=== PATIENT | male | born 1965 | race Caucasian/White ===

== ENCOUNTER 2017-01-30 15:18 | Emergency (ER) | payer OTHER ==
[2017-01-30] MEDS ORDERED: NORMAL SALINE 1000 ML 1,000 ML IV PRN (15:56)
--- NOTE | 2017-01-30 15:57 | ER Document Report ---
ED Medical Screen (RME) - General Chief Complaint: Abdominal Pain Stated Complaint: ABOMINAL PAIN Time Seen by Provider: 01/30/17 15:51 TRAVEL OUTSIDE OF THE [place] IN LAST 30 DAYS: No - HPI Notes: 01/30/17 15:57 Right flank pain for 1 week right upper quadrant shoulder pain beginning in the last 24 hours of nausea vomiting patient is a diabetic seen in urgent care with urinalysis showing spilling of bilirubin and glucose and ketones patient had no blood in the urine sample Past Medical History Renal/ Medical History: Denies: Hx Peritoneal Dialysis Review of Systems - Review of Systems Constitutional: Other - Flank pain Physical Exam - Vital signs Vitals: Temp Pulse Resp BP Pulse Ox 98.7 F 78 16 136/88 H 97 01/30/17 15:29 01/30/17 15:29 01/30/17 15:29 01/30/17 15:29 01/30/17 15:29 - Respiratory Respiratory status: No respiratory distress Chest status: Nontender Breath sounds: Normal Chest palpation: Normal Course - Vital Signs Vital signs: Temp Pulse Resp BP Pulse Ox 98.7 F 78 16 136/88 H 97 01/30/17 15:29 01/30/17 15:29 01/30/17 15:29 01/30/17 15:29 01/30/17 15:29
[2017-01-30 16:36] LABS: PROTHROMBIN TIME 11.8 SEC (11.4-15.4)
[2017-01-30 16:37] LABS: PARTIAL THROMBOPLASTIN TIME 25.1 SEC (23.5-35.8)
[2017-01-30 16:41] LABS: ABSOLUTE BASOPHILS # (AUTO) 0.1 10^3/uL (0.0-0.2); ABSOLUTE EOSINOPHILS # (AUTO) 0.3 10^3/uL (0.0-0.6); ABSOLUTE LYMPHOCYTES (AUTO) 2.5 10^3/uL (0.5-4.7); ABSOLUTE MONOCYTES (AUTO) 0.4 10^3/uL (0.1-1.4); ABSOLUTE NEUT (AUTO) 4.4 10^3/uL (1.7-8.2); BASOPHILS % (AUTO) 0.8 % (0-2); EOSINOPHILS % (AUTO) 3.5 % (0-6); HEMATOCRIT 50.7 % (37.9-51.0); HEMOGLOBIN 18.4 g/dL (13.5-17.0); LYMPHOCYTES % (AUTO) 32.5 % (13-45); MEAN CORPUSCULAR HEMOGLOBIN 32.3 pg (27.0-33.4); MEAN CORPUSCULAR HGB CONC 36.2 g/dL (32.0-36.0); MEAN CORPUSCULAR VOLUME 89 fl (80-97); MONOCYTES % (AUTO) 5.6 % (3-13); RED BLOOD COUNT 5.69 10^6/uL (4.35-5.55); RED CELL DISTRIBUTION WIDTH 13.1 % (11.5-14.0); SEGMENTED NEUTROPHILS % (AUTO) 57.6 % (42-78); WHITE BLOOD COUNT 7.6 10^3/uL (4.0-10.5)
[2017-01-30 16:51] LABS: ALANINE AMINOTRANSFERASE 54 U/L (21-72); ALBUMIN 4.6 g/dL (3.5-5.0); ALKALINE PHOSPHATASE 126 U/L (38-126); ANION GAP 12 (5-19); ASPARTATE AMINO TRANSFERASE 27 U/L (17-59); BILIRUBIN,DIRECT 0.5 mg/dL (0.0-0.4); BLOOD UREA NITROGEN 14 mg/dL (7-20); CALCIUM 10.6 mg/dL (8.4-10.2); CARBON DIOXIDE 25 mmol/L (22-30); CHLORIDE 99 mmol/L (98-107); CREATININE RESULT 0.64 mg/dL (0.52-1.25); GLUCOSE 291 mg/dL (75-110); LIPASE 24.9 U/L (23-300); POTASSIUM 4.5 mmol/L (3.6-5.0); SODIUM 135.8 mmol/L (137-145); TOTAL PROTEIN 8.2 g/dL (6.3-8.2)
[2017-01-30 16:53] LABS: HGB HCT DIFFERENCE 4.5
--- NOTE | 2017-01-30 17:41 | ER Document Report ---
ED Neck/Back Problem - General Mode of Arrival: Ambulatory Information source: Patient TRAVEL OUTSIDE OF THE [place] IN LAST 30 DAYS: No - HPI Patient complains to provider of: Lower back Recently seen / treated by doctor: Yes <ADRIÁN DURHAM - Last Filed: 01/30/17 18:17> <KALIE OCHOA - Last Filed: 01/30/17 23:59> - General Chief Complaint: Abdominal Pain Stated Complaint: ABOMINAL PAIN Time Seen by Provider: 01/30/17 15:51 Notes: Patient is a 51-year-old male who presents to the emergency department today with complaints of lower back pain of a one-week duration. Patient was seen at an urgent care prior to arrival here and was found to have bilirubin, blood, ketones, and sugar in his urine so he was sent here. Patient states his diabetes has been uncontrolled for approximately 1 year because he has moved here and has not had a doctor since moving. Patient states he used to be on Victoza and Farxiga. Patient mentions lower abdominal pain as well. Patient denies any pain with urination, weakness, fevers, nausea, or vomiting. (ADRIÁN DURHAM) - Related Data Allergies/Adverse Reactions: No Known Allergies Allergy (Verified 01/30/17 18:35) Past Medical History - General Information source: Patient - Social History Smoking Status: Never Smoker Cigarette use (# per day): No Chew tobacco use (# tins/day): No Frequency of alcohol use: Rare Drug Abuse: Marijuana Lives with: Family Family History: Reviewed & Not Pertinent - Past Medical History Cardiac Medical History: Reports: Hx Hypercholesterolemia, Hx Hypertension Endocrine Medical History: Reports: Hx Diabetes Mellitus Type 2 Psychiatric Medical History: Reports: Hx Depression Surgical Hx: Negative - Immunizations Hx Diphtheria, Pertussis, Tetanus Vaccination: Yes - 2014 <ADRIÁN DURHAM - Last Filed: 01/30/17 18:17> Review of Systems - Review of Systems Constitutional: See HPI, Other - abnormal urine test at urgent care. denies: Fever EENT: No symptoms reported Cardiovascular: No symptoms reported Respiratory: No symptoms reported Gastrointestinal: See HPI, Abdominal pain - diffuse lower abdominal pain. denies: Nausea, Vomiting Genitourinary: denies: Dysuria Male Genitourinary: No symptoms reported Musculoskeletal: See HPI, Back pain Skin: No symptoms reported Hematologic/Lymphatic: No symptoms reported Neurological/Psychological: No symptoms reported -: Yes All other systems reviewed and negative <ADRIÁN DURHAM - Last Filed: 01/30/17 18:17> Physical Exam <ADRIÁN DURHAM - Last Filed: 01/30/17 18:17> <KALIE OCHOA - Last Filed: 01/30/17 23:59> - Vital signs Vitals: Temp Pulse Resp BP Pulse Ox 98.7 F 78 16 136/88 H 97 01/30/17 15:29 01/30/17 15:29 01/30/17 15:29 01/30/17 15:29 01/30/17 15:29 - Notes Notes: PHYSICAL EXAM GENERAL: Alert, interacts well. No acute distress. HEAD: Normocephalic, atraumatic. EYES: Pupils equal, round, and reactive to light. Extraocular movements intact. ENT: Oral mucosa moist, tongue midline. NECK: Full range of motion. Supple. Trachea midline. LUNGS: Clear to auscultation bilaterally, no wheezes, rales, or rhonchi. No respiratory distress. HEART: Regular rate and rhythm. No murmurs, gallops, or rubs. ABDOMEN: Right upper quadrant abdominal tenderness with palpation, right lower quadrant abdominal tenderness with palpation, mild left lower quadrant tenderness with palpation. Non-distended. Bowel sounds present in all 4 quadrants. EXTREMITIES: Moves all 4 extremities spontaneously. No edema, radial and dorsalis pedis pulses 2/4 bilaterally. No cyanosis. BACK: Right paraspinal tenderness with palpation over thoracolumbar junction with muscle spasm, no midline tenderness. NEUROLOGICAL: Alert and oriented x3. Normal speech. PSYCH: Normal affect, normal mood. SKIN: Warm, dry, normal turgor. No rashes or lesions noted. (ADRIÁN DURHAM) Course - Laboratory Result Diagrams: 01/30/17 16:15 01/30/17 16:15 <ADRIÁN DURHAM - Last Filed: 01/30/17 18:17> - Laboratory Result Diagrams: 01/30/17 16:15 01/30/17 16:15 <KALIE OCHOA - Last Filed: 01/30/17 23:59> - Re-evaluation Re-evalutation: 01/30/17 23:58 CBC shows hemoconcentration with hemoglobin 18.4, coags normal, CMP shows elevated glucose at 291 consistent with a diabetic has not been on any medications for several months, LFTs normal, direct bilirubin minimally elevated at 0.5 instead of 0.4. Lipase normal. Discussed with family that the patient does not have a surgical abdomen at this time and I suspect pain in his back is coming from a muscle sprain causing muscle spasm. Family is very uncomfortable with this diagnosis, they are concerned by the reports of blood and ketones in his urine. I did review the report from urgent care, he has trace ketones, minimal blood, 100 of protein and very small bilirubin. They are very concerned that the patient may have renal failure and obstruction of his right kidney which is causing this pain in his back. I discussed with the family that I find this relatively unlikely given his normal BUN and creatinine however admitted that it could be possible to have normal renal function with only one functioning kidney. Renal ultrasound was undertaken as was abdominal ultrasound, this showed fatty infiltration of the liver, no biliary pathology, normal kidneys and normal renal blood flow. Robaxin did not decrease his pain. At present I still feel given the reproducible tenderness on palpation in the palpable muscle spasm at the thoracolumbar junction on physical examination on the right which is exactly where his pain is located that this most likely represents a muscular etiology of his pain. No evidence of infection, no erythema. Patient will be started on Flexeril and discharged home, patient will follow up with his primary care physician for first appointment on Tuesday. Per patient's request I did start the patient on Victoza and Farxiga which are the diabetic medications he was taking previously. (KALIE OCHOA) - Vital Signs Vital signs: Temp Pulse Resp BP Pulse Ox 98.5 F 76 17 123/74 95 01/30/17 20:30 01/30/17 20:30 01/30/17 20:30 01/30/17 20:30 01/30/17 20:30 - Laboratory Laboratory results interpreted by il: 01/30/17 01/30/17 16:15 16:15 RBC 5.69 H Hgb 18.4 H MCHC 36.2 H Sodium 135.8 L Glucose 291 H Calcium 10.6 H Direct Bilirubin 0.5 H Discharge <ADRIÁN DURHAM - Last Filed: 01/30/17 18:17> <KALIE OCHOA - Last Filed: 01/30/17 23:59> - Discharge Clinical Impression: Acute right flank pain, Prehypertension Hyperglycemia due to type 2 diabetes mellitus Qualifiers: Diabetes mellitus mcc insulin use: without mcc use Qualified Code(s ): E11.65 - Type 2 diabetes mellitus with hyperglycemia Condition: Stable Disposition: HOME, SELF-CARE Instructions: Flank Pain ([facility]) Prescriptions: Cyclobenzaprine HCl [Flexeril 10 mg Tablet] 10 mg PO TIDP PRN #15 tab PRN Reason: Dapagliflozin Propanediol [Farxiga] 5 mg PO DAILY #30 tablet Liraglutide [Victoza 2-[place]] 0.6 mg SQ DAILY #1 pkg Forms: Elevated Blood Pressure Referrals: LD GOODMAN MD [NO LOCAL MD] - Follow up as needed Scribe Attestation: 01/30/17 23:59 I personally performed the services described in the documentation, reviewed and edited the documentation which was dictated to the scribe in my presence, and it accurately records my words and actions. (KALIE OCHOA) Scribe Documentation - Scribe Written by Scribe:: Venkatesh Johnson, 01/30/2017 1828 acting as scribe for :: Yoselin <ADRIÁN DURHAM - Last Filed: 01/30/17 18:17>
[2017-01-30] MEDS ORDERED: METHOCARBAMOL INJ/PF 1000 MG/10 ML SDV IV ONE (17:55)
--- NOTE | 2017-01-30 18:51 | RADIOLOGY REPORT (SQ) ---
EXAM DESCRIPTION: U/S ABDOMEN LTD W/DOPPLER COMPLETED DATE/TIME: 01/30/2017 6:34 pm REASON FOR STUDY: ruq right flank COMPARISON: None. TECHNIQUE: Dynamic and static grayscale images acquired of the abdomen and recorded on PACS. Additio nal selected color Doppler and spectral images recorded. LIMITATIONS: Midline bowel gas FINDINGS: PANCREAS: Not well seen LIVER: Echogenic from diffuse hepatocellular disease or fatty infiltration. No focal masses. LIVER VASCULATURE: Normal directional flow of the main portal vein and hepatic veins. GALLBLADDER: No stones. Normal wall thickness. No pericholecystic fluid. ULTRASOUND-DETECTED SPENCER'S SIGN: Negative. INTRAHEPATIC DUCTS AND COMMON DUCT: CBD and intrahepatic ducts normal caliber. No filling defects. INFERIOR VENA CAVA: Not well seen AORTA: No aneurysm. RIGHT KIDNEY: Normal size. Normal echogenicity. No solid or suspicious masses. No hydronephrosis. No calcifications. PERITONEAL AND RIGHT PLEURAL SPACE: No ascites or effusions. OTHER: No other significant findings. IMPRESSION: Fatty liver No gallstones Pancreas not well seen TECHNICAL DOCUMENTATION: JOB ID: [id number]- All Rights Reserved
--- NOTE | 2017-01-30 19:02 | RADIOLOGY REPORT (SQ) ---
EXAM DESCRIPTION: U/S RETROPERITON (RENAL/AORTA) COMPLETED DATE/TIME: 01/30/2017 6:37 pm REASON FOR STUDY: right flank pain, r/o obstruction COMPARISON: None. TECHNIQUE: Dynamic and static grayscale images acquired of the kidneys and bladder and recorded on P ACS. Additional selected color Doppler and spectral images recorded. LIMITATIONS: None. FINDINGS: RIGHT KIDNEY: Normal size 12.1 cm in length. Normal echogenicity. No solid or suspicious m asses. No hydronephrosis. No calcifications. LEFT KIDNEY: Normal size, 12.7 seconds in length. Normal echogenicity. No solid or suspicious masses . No hydronephrosis. No calcifications. BLADDER: No masses. Bilateral ureteral jets are identified. OTHER FINDINGS: No other significant finding. IMPRESSION: NORMAL RENAL AND BLADDER ULTRASOUND. TECHNICAL DOCUMENTATION: JOB ID: [id number] [employer]- All Rights Reserved
[2017-01-30 21:57] VITALS: BP 123/74
== END 2017-01-30 20:30 | disposition home or self-care (01) ==
LOC: ER 15:18
DX: E11.65 Type 2 diabetes mellitus with hyperglycemia (principal); R10.9 Unspecified abdominal pain; R03.0 Elevated blood-pressure reading, without diagnosis of hypertension; M54.5 Low back pain; Z79.899 Other long term (current) drug therapy
CPT/HCPCS: 99284; 96361; 96374; 36415; 83690; 85025; 85610; 85730; 80053; 76770; 76705; 93976; J2800; J7030

== ENCOUNTER 2017-08-02 15:48 | Emergency (ER) | payer SELFPAY ==
[2017-08-02] MEDS ORDERED: ONDANSETRON HCL INJ/PF 4 MG/2 ML SDV IV ONE (16:25)
[2017-08-02] MEDS ORDERED: MORPHINE SULFATE 10 MG/ML INJ IV ONE (16:26)
[2017-08-02] MEDS ORDERED: NORMAL SALINE 1000 ML 1,000 ML IV ONE ×2 (16:26→18:27)
[2017-08-02 16:38] LABS: ABSOLUTE BASOPHILS # (AUTO) 0.1 10^3/uL (0.0-0.2); ABSOLUTE EOSINOPHILS # (AUTO) 0.3 10^3/uL (0.0-0.6); TOTAL CELLS COUNTED % (AUTO) 100 %
[2017-08-02 16:51] LABS: ABSOLUTE MONOCYTES (AUTO) 0.4 10^3/uL (0.1-1.4); ABSOLUTE NEUT (AUTO) 3.6 10^3/uL (1.7-8.2); BASOPHILS % (AUTO) 1.1 % (0-2); EOSINOPHILS % (AUTO) 5.3 % (0-6); HEMATOCRIT 46.3 % (37.9-51.0); HEMOGLOBIN 16.5 g/dL (13.5-17.0); LYMPHOCYTES % (AUTO) 30.7 % (13-45); MEAN CORPUSCULAR HGB CONC 35.7 g/dL (32.0-36.0); MEAN CORPUSCULAR VOLUME 90 fl (80-97); MONOCYTES % (AUTO) 6.2 % (3-13); PLATELET COUNT 214 10^3/uL (150-450); RED BLOOD COUNT 5.17 10^6/uL (4.35-5.55); RED CELL DISTRIBUTION WIDTH 13.2 % (11.5-14.0); SEGMENTED NEUTROPHILS % (AUTO) 56.7 % (42-78); WHITE BLOOD COUNT 6.4 10^3/uL (4.0-10.5)
--- NOTE | 2017-08-02 17:08 | ER Document Report ---
ED General - General Chief Complaint: High Blood Sugar Stated Complaint: BLOOD SUGARD CONCERNS Time Seen by Provider: 08/02/17 16:08 Information source: Patient Notes: 52-year-old male who presents today stating that his blood sugar at home has been very elevated. Patient states that he is on insulin, Victoza, and "Fosega ". Patient states he lost his job and no longer has insurance. Patient states he has been out of all his medications for 2 weeks. Patient states he is normally followed by the primary care physician Dr. Rodarte, but is unable to keep his appointment secondary to his insurance issues. Patient denies any nausea, vomiting, diaphoresis, chest pain, leg swelling. He states he took his blood sugar at home it was greater than 600. He states he was told to come immediately to the emergency department by his friend who works for EMS. Patient states he has some chronic lower back pain for the last few months. He states that he was told he has "back spasms". Denies any weakness or numbness of his legs. He denies any incontinence. He denies any recent trauma or fevers. TRAVEL OUTSIDE OF THE [place] IN LAST 30 DAYS: No - HPI Onset: Other - See above Onset/Duration: Gradual Quality of pain: Achy Severity: Moderate Pain Level: 2 Associated symptoms: Other - See above Exacerbated by: Movement Relieved by: Denies Recently seen / treated by doctor: Yes - Related Data Allergies/Adverse Reactions: No Known Allergies Allergy (Verified 08/02/17 15:50) Past Medical History - General Information source: Patient - Social History Smoking Status: Current Every Day Smoker Cigarette use (# per day): No Chew tobacco use (# tins/day): No Smoking Education Provided: No Frequency of alcohol use: None Drug Abuse: None Family History: Reviewed & Not Pertinent Patient has suicidal ideation: No Patient has homicidal ideation: No - Past Medical History Cardiac Medical History: Reports: Hx Hypercholesterolemia, Hx Hypertension Endocrine Medical History: Reports: Hx Diabetes Mellitus Type 2 Renal/ Medical History: Denies: Hx Peritoneal Dialysis Psychiatric Medical History: Reports: Hx Depression - Immunizations Hx Diphtheria, Pertussis, Tetanus Vaccination: Yes - 2014 Review of Systems - Review of Systems Constitutional: denies: Fever EENT: denies: Eye discharge, Nose discharge Cardiovascular: denies: Chest pain, Palpitations, Dizziness Respiratory: denies: Short of breath Gastrointestinal: denies: Vomiting Musculoskeletal: denies: Leg swelling Skin: Other - no hives. denies: Rash Neurological/Psychological: Other - no slurred speech -: Yes All other systems reviewed and negative Physical Exam - Vital signs Vitals: Temp Pulse Resp BP Pulse Ox 98.0 F 101 H 18 130/82 H 98 08/02/17 15:51 08/02/17 15:51 08/02/17 15:51 08/02/17 15:51 08/02/17 15:51 Interpretation: Normal Notes: Reviewed vital signs and nursing note as charted by RN. CONSTITUTIONAL: Alert and oriented and responds appropriately to questions. Well -appearing; well-nourished HEAD: Normocephalic; atraumatic EYES: PERRL; no nystagmus noted ENT: Normal nose; no rhinorrhea; moist mucous membranes; pharynx without lesions noted NECK: Supple without meningismus; non-tender CARD: Regular rate and rhythm; no murmurs RESP: Normal chest excursion without splinting or tachypnea; breath sounds clear and equal bilaterally ABD/GI: Normal bowel sounds; non-distended; soft, non-tender BACK: The back appears normal; tenderness to bilateral paraspinal muscular regions with no midline tenderness, swelling, erythema, or step-offs EXT: Normal ROM in all joints; non-tender to palpation; no edema SKIN: No acute lesions noted NEURO: Moves all extremities equally; 2+ patellar reflexes bilaterally; 5 out of 5 bilateral lower extremity plantar and flexor extension PSYCH: The patient's mood and manner are appropriate. Grooming and personal hygiene are appropriate. Course - Re-evaluation Re-evalutation: 08/02/17 17:09 Given the above history and physical examination we will order basic labs, obtain a venous blood gas, provide a liter of fluid, and reassess. Patient currently has no signs or symptoms of acute cord compression, discitis, or epidural abscess. 08/02/17 18:10 Labs as recorded. Second liter fluid has been given. I was able to call the primary care physician Dr. Rodarte. He was very generous stating that he would be able to see the patient tomorrow morning and possibly give him some medication samples. Patient does have an appointment in the extended month with the [facility]. The primary doctor even recommended possibly providing a dose of one-time Lantus prior to discharge before being seen tomorrow. States he has had a recent MRI of the lumbar spine showing no acute cord compression. Patient has no incontinence and is able to walk. I will provide a one-time dose of Lantus, another liter of fluid, and discharge with follow-up with both his primary doctor and the [facility]. - Vital Signs Vital signs: Temp Pulse Resp BP Pulse Ox 98.0 F 101 H 18 130/82 H 98 08/02/17 15:51 08/02/17 15:51 08/02/17 15:51 08/02/17 15:51 08/02/17 15:51 - Laboratory Result Diagrams: 08/02/17 16:23 08/02/17 17:20 Laboratory results interpreted by me: 08/02/17 08/02/17 16:03 17:20 Sodium 135.2 L Glucose 331 H POC Glucose 398 H Alkaline Phosphatase 129 H Discharge - Discharge Clinical Impression: Blood glucose elevated, Noncompliance with medication regimen Low back pain Qualifiers: Chronicity: acute Back pain laterality: bilateral Sciatica presence: with sciatica Sciatica laterality: sciatica of right side Qualified Code(s): M54.41 - Lumbago with sciatica, right side Condition: Good Disposition: HOME, SELF-CARE Additional Instructions: Please make sure that you follow-up with Dr. Rodarte tomorrow morning and/or the [facility] as scheduled. Come back immediately with any weakness or numbness of your legs, incontinence of urine or stool, change in mental status, fevers, increased pain, or any other acute problems.
[2017-08-02 17:59] LABS: ALANINE AMINOTRANSFERASE 38 U/L (21-72); ALKALINE PHOSPHATASE 129 U/L (38-126); ANION GAP 13 (5-19); ASPARTATE AMINO TRANSFERASE 23 U/L (17-59); BILIRUBIN,DIRECT 0.4 mg/dL (0.0-0.4); BILIRUBIN,TOTAL 0.5 mg/dL (0.2-1.3); BLOOD UREA NITROGEN 16 mg/dL (7-20); CALCIUM 9.3 mg/dL (8.4-10.2); CARBON DIOXIDE 22 mmol/L (22-30); CHLORIDE 100 mmol/L (98-107); GLUCOSE 331 mg/dL (75-110); POTASSIUM 4.6 mmol/L (3.6-5.0); SODIUM 135.2 mmol/L (137-145); TOTAL PROTEIN 7.1 g/dL (6.3-8.2)
[2017-08-02] MEDS ORDERED: INSULIN GLARGINE,HUM.REC.ANLOG 1,000 UNIT/10 ML UNIT SUBCUT ONE (18:26)
[2017-08-02 19:11] VITALS: BP 128/82
== END 2017-08-02 19:17 | disposition home or self-care (01) ==
LOC: ER 15:48
DX: E11.65 Type 2 diabetes mellitus with hyperglycemia (principal); T38.3X6A Underdosing of insulin and oral hypoglycemic [antidiabetic] drugs, initial encounter; Z91.120 Patient's intentional underdosing of medication regimen due to financial hardship; Z91.14 Patient's other noncompliance with medication regimen; M54.41 Lumbago with sciatica, right side; F17.200 Nicotine dependence, unspecified, uncomplicated; I10 Essential (primary) hypertension
CPT/HCPCS: 99285; 96361; 96374; 96375; 36415; 82962; 85025; 80053; J1815; J2270; J2405; J7030

== ENCOUNTER → 2017-11-09 | Outpatient (CLI) | payer OTHER ==
[2017-11-09 12:30] LABS: ABSOLUTE EOSINOPHILS # (AUTO) 0.1 10^3/uL (0.0-0.6); ABSOLUTE MONOCYTES (AUTO) 0.3 10^3/uL (0.1-1.4); ABSOLUTE NEUT (AUTO) 3.7 10^3/uL (1.7-8.2); BASOPHILS % (AUTO) 0.7 % (0-2); EOSINOPHILS % (AUTO) 2.3 % (0-6); HEMATOCRIT 46.8 % (37.9-51.0); HEMOGLOBIN 16.5 g/dL (13.5-17.0); LYMPHOCYTES % (AUTO) 32.1 % (13-45); MEAN CORPUSCULAR HEMOGLOBIN 31.1 pg (27.0-33.4); MEAN CORPUSCULAR HGB CONC 35.3 g/dL (32.0-36.0); MEAN CORPUSCULAR VOLUME 88 fl (80-97); MONOCYTES % (AUTO) 5.6 % (3-13); PLATELET COUNT 209 10^3/uL (150-450); RED BLOOD COUNT 5.31 10^6/uL (4.35-5.55); RED CELL DISTRIBUTION WIDTH 13.4 % (11.5-14.0); SEGMENTED NEUTROPHILS % (AUTO) 59.3 % (42-78); TOTAL CELLS COUNTED % (AUTO) 100 %; WHITE BLOOD COUNT 6.2 10^3/uL (4.0-10.5)
[2017-11-09 13:37] LABS: ALANINE AMINOTRANSFERASE 37 U/L (21-72); ALBUMIN 4.5 g/dL (3.5-5.0); ALKALINE PHOSPHATASE 141 U/L (38-126); ANION GAP 11 (5-19); ASPARTATE AMINO TRANSFERASE 23 U/L (17-59); BILIRUBIN,DIRECT 0.5 mg/dL (0.0-0.4); BILIRUBIN,TOTAL 0.9 mg/dL (0.2-1.3); BLOOD UREA NITROGEN 14 mg/dL (7-20); CALCIUM 9.9 mg/dL (8.4-10.2); CARBON DIOXIDE 29 mmol/L (22-30); CHLORIDE 99 mmol/L (98-107); CHOLESTEROL 197.89 mg/dL (0-200); GLUCOSE 382 mg/dL (75-110); POTASSIUM 5.8 mmol/L (3.6-5.0); SODIUM 139.4 mmol/L (137-145); TOTAL PROTEIN 7.8 g/dL (6.3-8.2)
[2017-11-09 13:46] LABS: TRIGLYCERIDES 797 mg/dL (<150)
[2017-11-09 13:48] LABS: DIRECT LDL 51 mg/dL (<100)
== END ==
LOC: CCC 11:41
DX: E11.8 Type 2 diabetes mellitus with unspecified complications (principal); D75.1 Secondary polycythemia
CPT/HCPCS: 36415; 80053; 80061; 83036; 84443; 85025

== ENCOUNTER → 2017-12-28 | Outpatient (CLI) | payer OTHER ==
--- NOTE | 2017-12-28 12:39 | RADIOLOGY REPORT (SQ) ---
EXAM DESCRIPTION: SHOULDER LEFT 2 OR MORE VIEWS COMPLETED DATE/TIME: 12/28/2017 12:31 pm REASON FOR STUDY: PAIN IN LEFT SHOULDER M25.512 PAIN IN LEFT SHOULDER M54.5 LOW BACK PAIN M54.2 C ERVICALGIA COMPARISON: None. NUMBER OF VIEWS: Three views. TECHNIQUE: Internal rotation, external rotation, and Y view images acquired of the left shoulder. LIMITATIONS: None. FINDINGS: MINERALIZATION: Normal. BONES: No acute fracture or dislocation. No worrisome bone lesions. JOINTS: No dislocation. VISUALIZED LUNGS AND RIBS: No pneumothorax. No rib fracture. SOFT TISSUES: No radiopaque foreign body. OTHER: No other significant finding. IMPRESSION: NEGATIVE STUDY OF THE LEFT SHOULDER. NO RADIOGRAPHIC EVIDENCE OF ACUTE INJURY. TECHNICAL DOCUMENTATION: JOB ID: [id number] [employer]- All Rights Reserved Reading location - IP/workstation name: [email or web address]
--- NOTE | 2017-12-28 12:41 | RADIOLOGY REPORT (SQ) ---
EXAM DESCRIPTION: C SP 6 OR MORE VIEWS; T SPINE AP/LAT COMPLETED DATE/TIME: 12/28/2017 12:31 pm REASON FOR STUDY: CERVICALGIA; LOW BACK PAIN COMPARISON: None. FINDINGS: 6 views cervical spine including upright flexion extension lateral: No malalignment or ab normal motion. Mild multilevel disc space narrowing with small osteophytes. No bulky spurs. Patent neural foramina. No fracture or bone lesion. Soft tissues unremarkable. Clear lung apices. Two view thoracic spine: Normal alignment. Multilevel disc space narrowing with small osteophytes. Normal soft tissues with no mediastinal mass or lung pathology demonstrated. IMPRESSION: 1. Cervical and thoracic spondylosis. No fracture or malalignment. 2. No abnormal cer vical spine motion on flexion-extension imaging. TECHNICAL DOCUMENTATION: JOB ID: [id number] Reading location - IP/workstation name: [email or web address]
--- NOTE | 2017-12-28 12:41 | RADIOLOGY REPORT (SQ) ---
EXAM DESCRIPTION: C SP 6 OR MORE VIEWS; T SPINE AP/LAT COMPLETED DATE/TIME: 12/28/2017 12:31 pm REASON FOR STUDY: CERVICALGIA; LOW BACK PAIN COMPARISON: None. FINDINGS: 6 views cervical spine including upright flexion extension lateral: No malalignment or ab normal motion. Mild multilevel disc space narrowing with small osteophytes. No bulky spurs. Patent neural foramina. No fracture or bone lesion. Soft tissues unremarkable. Clear lung apices. Two view thoracic spine: Normal alignment. Multilevel disc space narrowing with small osteophytes. Normal soft tissues with no mediastinal mass or lung pathology demonstrated. IMPRESSION: 1. Cervical and thoracic spondylosis. No fracture or malalignment. 2. No abnormal cer vical spine motion on flexion-extension imaging. TECHNICAL DOCUMENTATION: JOB ID: [id number] Reading location - IP/workstation name: [email or web address]
== END ==
LOC: CCC 11:19
DX: M25.512 Pain in left shoulder (principal)
CPT/HCPCS: 72052; 72070

== ENCOUNTER 2017-12-30 13:00 | Emergency (ER) | payer SELFPAY ==
--- NOTE | 2017-12-30 13:33 | ER Document Report ---
ED Cardiac - General Chief Complaint: Chest Pain Stated Complaint: SHORTNESS OF BREATH Time Seen by Provider: 12/30/17 13:33 Mode of Arrival: Ambulatory Information source: Patient TRAVEL OUTSIDE OF THE [place] IN LAST 30 DAYS: No - HPI Patient complains to provider of: Other - 50-year-old man presents for evaluation of several days of generalized feelings of weakness and being unwell , he notes he has a history of poorly controlled diabetes which for him usually means his blood sugars run in the 350 range, he also complains that he has been feeling a little jittery today more than usual. Woke up after normal negative sleep feeling a little bit weak and clammy generally feel well denies any shortness of breath diaphoresis emesis diarrhea constipation rashes or recent illnesses he does endorse pain in his left shoulder joint. - Related Data Allergies/Adverse Reactions: No Known Allergies Allergy (Verified 08/02/17 15:50) Past Medical History - General Information source: Patient - Social History Smoking Status: Current Every Day Smoker Family History: Reviewed & Not Pertinent - Past Medical History Cardiac Medical History: Reports: Hx Hypercholesterolemia, Hx Hypertension Endocrine Medical History: Reports: Hx Diabetes Mellitus Type 2 Renal/ Medical History: Denies: Hx Peritoneal Dialysis Psychiatric Medical History: Reports: Hx Depression - Immunizations Hx Diphtheria, Pertussis, Tetanus Vaccination: Yes - 2014 Review of Systems - Review of Systems -: Yes All other systems reviewed and negative Physical Exam - Vital signs Vitals: Resp Pulse Ox 23 H 99 12/30/17 13:18 12/30/17 13:18 - General General appearance: Appears well In distress: None - HEENT Head: Normocephalic Eyes: Normal Conjunctiva: Normal Cornea: Normal - Respiratory Respiratory status: No respiratory distress Chest status: Nontender Breath sounds: Normal Chest palpation: Normal - Cardiovascular Rhythm: Regular Heart sounds: Normal auscultation Murmur: No - Abdominal Inspection: Normal Distension: No distension - Back Back: Normal - Extremities General lower extremity: Normal inspection Shoulder: Other - The left upper extremity demonstrates marked tenderness over the anterior aspect of the deltoid as well as the trapezius, normal range of motion of the shoulder, 5 out of 5 strength bilaterally Stable chest wall stable shoulder normal range of motion of the elbows - Neurological Neuro grossly intact: Yes Cognition: Normal Orientation: AAOx4 [place] Coma Scale Eye Opening: Spontaneous [place] Coma Scale Verbal: Oriented Course - Re-evaluation Re-evalutation: 12/30/17 20:29 This 52-year-old man presented for evaluation of paresthesias in his extremities as well as hyperventilation which began after he began to feel pain in his left deltoid. He has had similar episodes in the past which he was told related to panic attacks. He does have poorly controlled diabetes at baseline is never had any other medical problems to save some high blood pressure. Initially he is short of breath and says that he feels somewhat nervous. Because of the concern for some other underlying more serious process will obtain chemistry as well as [facility] E[facility]. Patient with elevated blood glucose, will administer normal saline. Patient has a modest anion gap increase, will obtain VBG, his CBC is unremarkable. On reassessment of this patient he is now symptom-free, breathing comfortably, has no complaints. VBG demonstrates a normal pH, this patient is not in DKA at this time is otherwise well-appearing. His urinalysis does demonstrate some glucosuria. I offered him further evaluation the hospital potential testing to further elucidate his symptoms because he declined at this time. Talk to him about topical administration of analgesic for his shoulder and the importance of follow-up moving forward. 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 - Vital Signs Vital signs: Temp Pulse Resp BP Pulse Ox 11 L 120/81 93 12/30/17 15:01 12/30/17 15:01 12/30/17 15:01 - Laboratory Result Diagrams: 12/30/17 13:28 12/30/17 13:28 Laboratory results interpreted by me: 12/30/17 12/30/17 13:28 14:09 Sodium 134.4 L Carbon Dioxide 16 L Anion Gap 20 H Glucose 338 H Alkaline Phosphatase 153 H Urine Glucose (UA) >=500 H Urine Ketones 20 H Discharge - Discharge Clinical Impression: Shortness of breath, Hyperglycemia Condition: Good Disposition: HOME, SELF-CARE Instructions: Hyperglycemia ([facility]) Additional Instructions: You were seen in the emergency department for shortness of breath and shoulder pain. You had an evaluation including physical exam as well as blood tests, no obvious cause identified. Shoulder pain it is likely related to adhesive capsulitis. Try to slow your breathing the next time that you feel this way. If you have worsening chest pain shortness of breath abdominal pain or fevers return to the emergency room. Prescriptions: Lidocaine HCl [Xylocaine 5% Ointment 35.44 gm] 35.44 applic TP DAILY 7 Days #2 tube Referrals: [facility] [NO LOCAL MD] - Follow up as needed
--- NOTE | 2017-12-30 13:47 | RADIOLOGY REPORT (SQ) ---
EXAM DESCRIPTION: CHEST SINGLE VIEW COMPLETED DATE/TIME: 12/30/2017 1:33 pm REASON FOR STUDY: sob COMPARISON: None. EXAM PARAMETERS: NUMBER OF VIEWS: One view. TECHNIQUE: Single frontal radiographic view of the chest acquired. RADIATION DOSE: NA LIMITATIONS: None. FINDINGS: LUNGS AND PLEURA: No opacities, masses or pneumothorax. No pleural effusion. MEDIASTINUM AND HILAR STRUCTURES: No masses. Contour normal. HEART AND VASCULAR STRUCTURES: Heart normal in size. Normal vasculature. BONES: No acute findings. HARDWARE: None in the chest. OTHER: No other significant finding. IMPRESSION: NO ACUTE RADIOGRAPHIC FINDING IN THE CHEST. TECHNICAL DOCUMENTATION: JOB ID: [id number] [employer]- All Rights Reserved Reading location - IP/workstation name: [email or web address]
[2017-12-30] MEDS ORDERED: NORMAL SALINE 1000 ML 1,000 ML IV ONE (13:50)
[2017-12-30 13:53] LABS: ABSOLUTE BASOPHILS # (AUTO) 0.1 10^3/uL (0.0-0.2); ABSOLUTE EOSINOPHILS # (AUTO) 0.2 10^3/uL (0.0-0.6); ABSOLUTE LYMPHOCYTES (AUTO) 2.6 10^3/uL (0.5-4.7); ABSOLUTE MONOCYTES (AUTO) 0.4 10^3/uL (0.1-1.4); ABSOLUTE NEUT (AUTO) 5.7 10^3/uL (1.7-8.2); BASOPHILS % (AUTO) 0.8 % (0-2); EOSINOPHILS % (AUTO) 2.2 % (0-6); HEMATOCRIT 46.6 % (37.9-51.0); MEAN CORPUSCULAR VOLUME 88 fl (80-97); MONOCYTES % (AUTO) 4.7 % (3-13); PLATELET COUNT 259 10^3/uL (150-450); RED CELL DISTRIBUTION WIDTH 13.4 % (11.5-14.0); SEGMENTED NEUTROPHILS % (AUTO) 63.3 % (42-78); TOTAL CELLS COUNTED % (AUTO) 100 %; WHITE BLOOD COUNT 8.9 10^3/uL (4.0-10.5)
[2017-12-30 14:06] LABS: HEMOGLOBIN 15.7 g/dL (13.5-17.0)
[2017-12-30 14:07] LABS: MEAN CORPUSCULAR HEMOGLOBIN 29.6 pg (27.0-33.4)
[2017-12-30 14:08] LABS: MEAN CORPUSCULAR HGB CONC 33.7 g/dL (32.0-36.0)
[2017-12-30 14:26] LABS: ALANINE AMINOTRANSFERASE 36 U/L (21-72); ALBUMIN 4.1 g/dL (3.5-5.0); ALKALINE PHOSPHATASE 153 U/L (38-126); ASPARTATE AMINO TRANSFERASE 21 U/L (17-59); BILIRUBIN,DIRECT 0.4 mg/dL (0.0-0.4); BLOOD UREA NITROGEN 15 mg/dL (7-20); CALCIUM 9.2 mg/dL (8.4-10.2); CHLORIDE 98 mmol/L (98-107); CREATINE KINASE 60 U/L (55-170); GLUCOSE 338 mg/dL (75-110)
[2017-12-30 14:31] LABS: CARBON DIOXIDE 16 mmol/L (22-30); SODIUM 134.4 mmol/L (137-145)
[2017-12-30 14:32] LABS: ANION GAP 20 (5-19)
[2017-12-30 14:38] LABS: CREATINE KINASE MB 1.12 ng/mL (<4.55)
[2017-12-30 14:39] LABS: TROPONIN I < 0.012 ng/mL
[2017-12-30] MEDS ORDERED: DANTROLENE SODIUM INJ 20 MG VIAL IV PRN (14:51)
[2017-12-30 15:51] VITALS: BP 120/81
[2017-12-30 16:09] LABS: APPEARANCE,URINE CLEAR; BILIRUBIN,URINE NEGATIVE (NEGATIVE); COLOR,URINE YELLOW; GLUCOSE, URINE >=500 mg/dL (NEGATIVE); KETONES,URINE 20 mg/dL (NEGATIVE); LEUKOCYTE ESTERASE,URINE NEGATIVE (NEGATIVE); NITRITE,URINE NEGATIVE (NEGATIVE); PROTEIN,URINE NEGATIVE (NEGATIVE); URINE SPECIFIC GRAVITY 1.031; UROBILINOGEN,URINE NEGATIVE mg/dL (<2.0)
[2017-12-30 16:40] LABS: VENOUS BLOOD BASE EXCESS -0.9 mmol/L; VENOUS BLOOD PH 7.39 (7.30-7.42)
--- NOTE | 2017-12-30 18:42 | EKG REPORT ---
SEVERITY:- BORDERLINE ECG - SINUS TACHYCARDIA BORDERLINE LEFT AXIS DEVIATION : Confirmed by: Agustin Castro MD 30-Dec-2017 18:41:43
== END 2017-12-30 18:00 | disposition home or self-care (01) ==
LOC: ER 13:00
DX: R06.02 Shortness of breath (principal); E11.65 Type 2 diabetes mellitus with hyperglycemia; R07.9 Chest pain, unspecified; R53.1 Weakness; F17.200 Nicotine dependence, unspecified, uncomplicated; I10 Essential (primary) hypertension; R20.2 Paresthesia of skin; M79.1 Myalgia; R06.4 Hyperventilation
CPT/HCPCS: 93005; 99285; 96360; 36415; 82553; 82550; 85025; 80053; 81001; 84484; 82803; 71045; 93010; J7030

== ENCOUNTER → 2018-03-22 | Outpatient (CLI) | payer OTHER ==
[2018-03-22 13:00] LABS: APPEARANCE,URINE CLEAR; BILIRUBIN,URINE NEGATIVE (NEGATIVE); COLOR,URINE STRAW; GLUCOSE, URINE >=500 mg/dL (NEGATIVE); KETONES,URINE 20 mg/dL (NEGATIVE); LEUKOCYTE ESTERASE,URINE NEGATIVE (NEGATIVE); NITRITE,URINE NEGATIVE (NEGATIVE); PROTEIN,URINE NEGATIVE (NEGATIVE); URINE SPECIFIC GRAVITY 1.027; UROBILINOGEN,URINE NEGATIVE mg/dL (<2.0)
[2018-03-22 13:01] LABS: ABSOLUTE BASOPHILS # (AUTO) 0.1 10^3/uL (0.0-0.2); ABSOLUTE EOSINOPHILS # (AUTO) 0.2 10^3/uL (0.0-0.6); ABSOLUTE LYMPHOCYTES (AUTO) 2.5 10^3/uL (0.5-4.7); ABSOLUTE MONOCYTES (AUTO) 0.3 10^3/uL (0.1-1.4); ABSOLUTE NEUT (AUTO) 6.2 10^3/uL (1.7-8.2); BASOPHILS % (AUTO) 0.8 % (0-2); EOSINOPHILS % (AUTO) 2.3 % (0-6); HEMATOCRIT 49.9 % (37.9-51.0); HEMOGLOBIN 17.8 g/dL (13.5-17.0); LYMPHOCYTES % (AUTO) 26.4 % (13-45); MEAN CORPUSCULAR HEMOGLOBIN 31.5 pg (27.0-33.4); MEAN CORPUSCULAR HGB CONC 35.7 g/dL (32.0-36.0); MEAN CORPUSCULAR VOLUME 88 fl (80-97); MONOCYTES % (AUTO) 3.7 % (3-13); PLATELET COUNT 248 10^3/uL (150-450); RED BLOOD COUNT 5.65 10^6/uL (4.35-5.55); RED CELL DISTRIBUTION WIDTH 13.2 % (11.5-14.0); SEGMENTED NEUTROPHILS % (AUTO) 66.8 % (42-78); TOTAL CELLS COUNTED % (AUTO) 100 %; WHITE BLOOD COUNT 9.3 10^3/uL (4.0-10.5)
[2018-03-22 13:16] LABS: BLOOD UREA NITROGEN 14 mg/dL (7-20); CALCIUM 10.3 mg/dL (8.4-10.2); CARBON DIOXIDE 19 mmol/L (22-30); CHLORIDE 99 mmol/L (98-107); GLUCOSE 253 mg/dL (75-110); URIC ACID 6.1 mg/dL (3.5-8.5)
[2018-03-22 13:22] LABS: ANION GAP 22 (5-19); SODIUM 139.5 mmol/L (137-145)
== END ==
LOC: CCC 11:34
DX: E11.10 Type 2 diabetes mellitus with ketoacidosis without coma (principal)
CPT/HCPCS: 36415; 80048; 81001; 82010; 84550; 85025